=== PATIENT | male | born 1985 | race Caucasian/White ===

== ENCOUNTER 2018-10-01 02:08 | Emergency (ER) | payer MEDICAID ==
[~2018-10-01] VITALS: Ht 195.6 cm; Wt 78.0 kg
[~2018-10-01 02:08] MED LIST: CLIN-96 PO
[2018-10-01 02:12] VITALS: BP 131/91
[2018-10-01] MEDS ORDERED: naproxen 500mg tablet PO ONE (05:15)
[2018-10-01] MEDS ORDERED: NAPR-56 PO (05:27)
== END 2018-10-01 06:03 | disposition home or self-care (01) ==
LOC: ER 02:09
DX: S63.592A Other specified sprain of left wrist, initial encounter (principal); F10.99 Alcohol use, unspecified with unspecified alcohol-induced disorder; Z79.899 Other long term (current) drug therapy; Y90.9 Presence of alcohol in blood, level not specified; W22.8XXA Striking against or struck by other objects, initial encounter; Y93.89 Activity, other specified; Y92.89 Other specified places as the place of occurrence of the external cause; Y99.8 Other external cause status
CPT/HCPCS: 29125; 73130; 99283

== ENCOUNTER 2022-03-27 04:07 | Emergency (ER) | payer MEDICAID ==
[~2022-03-27] VITALS: Ht 195.6 cm; Wt 113.6 kg
[~2022-03-27 04:07] MED LIST changes: -CLIN-96 PO; +CLIN-97 PO
[2022-03-27 04:18] VITALS: BP 144/84
[2022-03-27] MEDS ORDERED: CEPH-585 PO (04:31)
[2022-03-27] MEDS ORDERED: SULF1TAB49 PO (04:31)
== END 2022-03-27 04:43 | disposition home or self-care (01) ==
LOC: ER 04:08
DX: L02.512 Cutaneous abscess of left hand (principal); Z79.899 Other long term (current) drug therapy; Z79.1 Long term (current) use of non-steroidal anti-inflammatories (NSAID)
CPT/HCPCS: 99283

== ENCOUNTER 2024-01-24 20:26 | Emergency (ER) | payer MEDICAID ==
[~2024-01-24] VITALS: Ht 195.6 cm; Wt 123.4 kg
[2024-01-24 20:28] VITALS: BP 157/81; PULSE 95; RESP 16; TEMP 98.2; O2SAT 95
[2024-01-24] MEDS ORDERED: ACYC-129 PO (21:02)
[2024-01-24] MEDS ORDERED: SULF1TAB49 PO (21:02)
[2024-01-24] MEDS ORDERED: CEPH-585 PO (21:02)
[2024-01-24] MEDS: sulfamethoxazole/trimethoprim DS (800/160mg) tablet PO ONE (21:24)
[2024-01-24] MEDS: valacyclovir 500mg tablet PO ONE (21:24)
== END 2024-01-24 21:33 | disposition home or self-care (01) ==
LOC: ER 20:26
DX: G51.0 Bell's palsy (principal); L03.211 Cellulitis of face; Z79.2 Long term (current) use of antibiotics
CPT/HCPCS: 99283